=== PATIENT | male | born 1950 | race Caucasian/White ===

== ENCOUNTER 2019-07-05 07:08 | Inpatient (IN) | payer OTHER ==
[2019-07-05] VITALS (36 sets, daily range): BP systolic 108–163; BP diastolic 65–98; PULSE 80–99; RESP 13–24; Ht 180.3 cm; Wt 104.0 kg
[~2019-07-05] VITALS: Ht 180.3 cm; Wt 104.0 kg
[~2019-07-05 07:08] MED LIST: ATEN-51 PO; BUPR150T6 PO; HYDR-3980 PO; LOSA1TAB25 PO; METF500T3 PO; OMEP20CA16 PO; SIMV40TA2 PO; TADA5TAB2 PO
[2019-07-05] MEDS ORDERED: POLYMYXIN/BACITRACIN 1L IRRIG ONE (09:51)
[2019-07-05] MEDS ORDERED: GELATIN SIZE 100 SPONGE ONE (09:51)
[2019-07-05] MEDS ORDERED: THROMBIN 5000 UNIT (RECOTHROM) VIAL ONE (09:51)
[2019-07-05] MEDS ORDERED: BUPIVACAINE 0.25% (MPF) 30 ML INJ ONE (09:51)
[2019-07-05] MEDS ORDERED: ROCURONIUM 50 MG INJ ONE ×2 (09:55→12:14)
[2019-07-05] MEDS ORDERED: GLYCOPYRROLATE 0.4 MG INJ ONE ×3 (09:55→10:33)
[2019-07-05] MEDS ORDERED: LIDOCAINE 2% (SDV) 5 ML INJ ONE (09:55)
[2019-07-05] MEDS ORDERED: NEOSTIGMINE 3 MG/3 ML SYRINGE ONE ×2 (09:55→10:33)
[2019-07-05] MEDS ORDERED: PROPOFOL 20 ML ONE (09:55)
[2019-07-05] MEDS ORDERED: SUCCINYLCHOLINE CHLORIDE 100 MG/5 ML SYG IV ONE (09:55)
[2019-07-05] MEDS ORDERED: MEPERIDINE 100 MG INJ ONE (09:55)
[2019-07-05] MEDS ORDERED: CEFAZOLIN 2 GM/50 ML (PMX) 50 ML IVPB ONE (10:00)
[2019-07-05] MEDS ORDERED: EPHEDrine 25 MG/5 ML SYG ONE (10:58)
[2019-07-05] MEDS ORDERED: ONDANSETRON 4 MG INJ ONE (10:58)
[2019-07-05] MEDS ORDERED: METOCLOPRAMIDE 10 MG INJ IV PRN (11:30)
[2019-07-05] MEDS ORDERED: HYDROmorphONE 1 MG/5 ML IV SYRINGE IV PRN ×3 (11:30)
[2019-07-05] MEDS ORDERED: hydrALAzine 20 MG INJ IV PRN (11:30)
[2019-07-05] MEDS ORDERED: MEPERIDINE 25 MG INJ IV PRN (11:30)
[2019-07-05] MEDS ORDERED: FENTAnyl 50 MCG/ML VIAL IV PRN ×3 (11:30)
[2019-07-05] MEDS ORDERED: EPHEDrine 25 MG/5 ML SYG IV PRN (11:30)
[2019-07-05] MEDS ORDERED: LABETALOL HCL 20MG INJ IV PRN (11:30)
[2019-07-05] MEDS ORDERED: ONDANSETRON 4 MG INJ IV PRN ×2 (11:30→13:00)
[2019-07-05] MEDS ORDERED: DIPHENHYDRAMINE 50 MG INJ IV PRN (11:30)
[2019-07-05] MEDS ORDERED: MIDAZOLAM 1 MG/ML 2 ML INJ IV PRN (11:30)
[2019-07-05] MEDS ORDERED: CEPASTAT LOZENGE MT PRN (13:00)
[2019-07-05] MEDS ORDERED: HYDROCODONE/APAP (5/325) TAB PO PRN (13:00)
[2019-07-05] MEDS ORDERED: DIPHENHYDRAMINE 50 MG CAP PO PRN (13:00)
[2019-07-05] MEDS ORDERED: NALOXONE (0.4 MG/ML) INJ IV PRN (13:00)
[2019-07-05] MEDS ORDERED: BETHANECHOL 25 MG TAB PO PRN (13:00)
[2019-07-05] MEDS ORDERED: AL HYDROX/MG HYDROX/SIMETH 30 ML CUP PO PRN (13:00)
[2019-07-05] MEDS ORDERED: ACETAMINOPHEN 325 MG TAB PO PRN (13:00)
[2019-07-05] MEDS ORDERED: TRIMETHOBENZAMIDE 100 MG/ML VIAL IM PRN (13:00)
[2019-07-05] MEDS ORDERED: ZOLPIDEM 5 MG TAB PO PRN (13:00)
[2019-07-05] MEDS ORDERED: NACL 0.9% 3 ML SYG IV SCH (13:00)
[2019-07-05] MEDS ORDERED: DIAZEPAM 10 MG/2 ML SYG IM PRN (13:00)
[2019-07-05] MEDS ORDERED: PROCHLORPERAZINE 10 MG TAB PO PRN (13:00)
[2019-07-05] MEDS: HYDROmorphONE 0.2 MG/ML PCA IV SCH ×2 (13:44→23:06)
[2019-07-05] MEDS ORDERED: GLUCOSE GEL 15 GRAM TUBE BUCCAL PRN (16:00)
[2019-07-05] MEDS ORDERED: GLUCOSE GEL 15 GRAM TUBE PO PRN ×2 (16:00)
[2019-07-05] MEDS ORDERED: DEXTROSE 50% 50 ML SYRINGE IV PRN ×2 (16:00)
[2019-07-05] MEDS ORDERED: GLUCAGON 1 MG INJ IM PRN (16:00)
[2019-07-05] MEDS: DEXTROSE 5%-0.45% NACL 1,000 ML IV SCH (16:03)
[2019-07-05] MEDS ORDERED: NON-FORMULARY/PATIENT OWN MED (Simvastatin* (Zocor*) 40 MG) PO SCH (21:00)
[2019-07-05] MEDS: ATORVASTATIN 20 MG TAB PO SCH (21:09)
[2019-07-05] MEDS: RANITIDINE 150 MG TAB PO SCH (21:10)
[2019-07-06 00:30] VITALS: BP 150/85
[2019-07-06] MEDS: PANTOPRAZOLE (EC) 40 MG TAB PO SCH (05:09)
[2019-07-06] MEDS: DEXTROSE 5%-0.45% NACL 1,000 ML IV SCH ×2 (05:09→15:00)
[2019-07-06 07:59] VITALS: BP 116/63; PULSE 80; RESP 18
[2019-07-06] MEDS ORDERED: BETHANECHOL 25 MG TAB PO PRN (08:00)
[2019-07-06] MEDS: DOCUSATE SODIUM 100 MG CAP PO SCH ×2 (08:44→22:05)
[2019-07-06] MEDS: FERROUS SULFATE (EC) 325 MG TAB PO SCH ×3 (08:45→22:05)
[2019-07-06] MEDS: metFORMIN (XR) 500 MG TAB PO SCH (08:45)
[2019-07-06] MEDS: BUPROPION (XL) 150 MG TAB PO SCH (08:45)
[2019-07-06] MEDS: ASCORBIC ACID 500 MG TAB PO SCH ×2 (08:45→22:05)
[2019-07-06] MEDS: RANITIDINE 150 MG TAB PO SCH ×2 (08:45→22:05)
[2019-07-06] MEDS: ATENOLOL 25 MG TAB PO SCH (08:46)
[2019-07-06] MEDS: HYDROCHLOROTHIAZIDE 25 MG TAB PO SCH (08:46)
[2019-07-06] MEDS: LOSARTAN 50 MG TAB PO SCH (08:47)
[2019-07-06] MEDS ORDERED: NON-FORMULARY/PATIENT OWN MED (Losartan-Hydrochlorothiazide (Losartan-HCTZ) 1 TAB) PO SCH (09:00)
[2019-07-06] MEDS ORDERED: NON-FORMULARY/PATIENT OWN MED (Omeprazole* 20 MG) PO SCH (09:00)
[2019-07-06] MEDS: HYDROCODONE/APAP (5/325) TAB PO PRN ×4 (09:05→22:04)
[2019-07-06] MEDS: DIAZEPAM 5 MG TAB PO PRN ×4 (10:09→23:22)
[2019-07-06] MEDS ORDERED: POTASSIUM CHLORIDE (SR) 20 MEQ TAB PO STA (11:12)
[2019-07-06] MEDS ORDERED: POTASSIUM CHLORIDE (SR) 20 MEQ TAB PO ONE (11:30)
[2019-07-06 15:54] VITALS: BP 113/64; PULSE 86; RESP 18
[2019-07-06] MEDS: INSULIN ASPART [NOVOLOG] 3 ML PEN SC SCH ×2 (17:55→21:00)
[2019-07-06 19:30] VITALS: BP 131/65; PULSE 96; RESP 18
[2019-07-06] MEDS: ATORVASTATIN 20 MG TAB PO SCH (22:05)
[2019-07-07] MEDS: DEXTROSE 5%-0.45% NACL 1,000 ML IV SCH ×2 (01:00→11:00)
[2019-07-07] MEDS: HYDROCODONE/APAP (5/325) TAB PO PRN ×4 (02:03→15:12)
[2019-07-07 02:53] VITALS: BP 112/66; PULSE 93; RESP 18
[2019-07-07] MEDS: DIAZEPAM 5 MG TAB PO PRN ×2 (03:25→08:46)
[2019-07-07] MEDS: PANTOPRAZOLE (EC) 40 MG TAB PO SCH (06:07)
[2019-07-07 07:48] VITALS: BP 119/66; PULSE 94; RESP 19
[2019-07-07] MEDS: ASCORBIC ACID 500 MG TAB PO SCH (08:26)
[2019-07-07] MEDS: FERROUS SULFATE (EC) 325 MG TAB PO SCH ×2 (08:26→13:52)
[2019-07-07] MEDS: metFORMIN (XR) 500 MG TAB PO SCH (08:27)
[2019-07-07] MEDS: RANITIDINE 150 MG TAB PO SCH (08:27)
[2019-07-07] MEDS: DOCUSATE SODIUM 100 MG CAP PO SCH (08:27)
[2019-07-07] MEDS: BUPROPION (XL) 150 MG TAB PO SCH (08:27)
[2019-07-07] MEDS: HYDROCHLOROTHIAZIDE 25 MG TAB PO SCH (08:28)
[2019-07-07] MEDS: ATENOLOL 25 MG TAB PO SCH (08:28)
[2019-07-07] MEDS: LOSARTAN 50 MG TAB PO SCH (08:29)
[2019-07-07] MEDS: INSULIN ASPART [NOVOLOG] 3 ML PEN SC SCH ×2 (08:34→11:40)
[2019-07-07] MEDS ORDERED: POTASSIUM CHLORIDE (SR) 20 MEQ TAB PO ONE (09:00)
[2019-07-07] MEDS ORDERED: POTASSIUM CHLORIDE (SR) 20 MEQ TAB PO STA (13:17)
== END 2019-07-07 15:47 | disposition home or self-care (01) | DRG 520 ==
LOC: SDS 07:08 → EDUNIT# 10:00 → REC 12:53 → SDS 12:53 → MS1 16:14
PROVIDERS: ADMIT Orthopaedic Surgery; ATTEND Orthopaedic Surgery
PROC: 00BT0ZX Excision of Spinal Meninges, Open Approach, Diagnostic (ICD-10-PCS; 2019-07-05)
PROC: 4A11X4G Monitoring of Peripheral Nervous Electrical Activity, Intraoperative, External Approach (ICD-10-PCS; 2019-07-05)
PROC: 01NR0ZZ Release Sacral Nerve, Open Approach (ICD-10-PCS; principal; 2019-07-05 10:00)
DX: M48.061 Spinal stenosis, lumbar region without neurogenic claudication (principal); E88.2 Lipomatosis, not elsewhere classified; E11.9 Type 2 diabetes mellitus without complications; I10 Essential (primary) hypertension; E78.5 Hyperlipidemia, unspecified; F33.41 Major depressive disorder, recurrent, in partial remission; K21.9 Gastro-esophageal reflux disease without esophagitis
CPT/HCPCS: 72020; 80048; 81001; 82962; 83735; 85014; 85018; 86850; 86900; 86901; 86920; 87086; 88304; 88311; 97116; 97161; 97530; J0690; J1170; J1815; J2175; J2405; J2710; J7042